=== PATIENT | male | born 1965 | race Caucasian/White ===

== ENCOUNTER 2020-02-11 00:27 | Outpatient (CLI) | payer OTHER, SELFPAY ==
[2020-02-11 18:31] LABS: SARS-CoV-2 RNA PCR Negative
== END 2020-02-11 00:28 | disposition home or self-care (01) ==
LOC: ANHCOVIDDT 00:28
PROVIDERS: PCP Internal Medicine; Visit Provider Internal Medicine Cardiovascular Disease
DX: Z01.812 Encounter for preprocedural laboratory examination (principal); Z11.59 Encounter for screening for other viral diseases
CPT/HCPCS: 87635; C9803; U0003

== ENCOUNTER 2020-02-14 05:26 | Day surgery (SDC) | payer OTHER, SELFPAY ==
[2020-02-14] VITALS (8 sets, daily range): BP systolic 124–142; BP diastolic 75–82; PULSE 60–71; RESP 15–20; TEMP 36.4–36.8; O2SAT 96–98; BMI 40.4
[2020-02-14 07:45] LABS: Basophils Percent Auto 0.5 % (0.2-1.2); Eosinophils Absolute Auto 0.1 K/mm3 (0-0.3); Eosinophils Percent Auto 2.2 % (0-4.4); Hematocrit 50.1 % (42.0-52.0); Hemoglobin 17.1 g/dL (14.0-18.0); Immature Granulocyte Absolute 0.02 K/mm3 (0.00-0.031); Immature Granulocyte Percent A 0.5 % (0-0.5); Lymphocytes Absolute Auto 1.34 K/mm3 (0.9-3.2); Lymphocytes Percent Auto 32.1 % (18.3-44.2); Mean Corpuscular HGB Conc 34.1 g/dl (32-36); Mean Corpuscular Volume 90.8 fl (80-100); Mean Platelet Volume 9.9 fl (7.4-10.4); Monocytes Absolute Auto 0.4 K/mm3 (0.1-0.6); Monocytes Percent Auto 9.1 % (2.6-8.5); Neutrophils Absolute Auto 2.3 K/mm3 (1.3-6.7); Neutrophils Percent Auto 55.6 % (45.5-73.1); Platelet Count Result 113 k/mm3 (150-375); Red Blood Count 5.52 M/mm3 (4.6-6.20); Red Cell Distribution Width 12.5 % (11.5-14.5); White Blood Count 4.2 K/mm3 (4.5-10.0)
[2020-02-14 07:53] LABS: Prothrombin Time 12.9 Seconds (11.1-14.7)
[2020-02-14 08:01] LABS: Blood Urea Nitrogen 27 mg/dL (9-20); Calcium 9.2 mg/dL (8.4-10.2); Carbon Dioxide 28 mmol/L (22-30); Chloride 101 mmol/L (98-107); Estimated CRCL calculation 101 ml/min; Estimated Glomerular Filt Rate > 60; Glucose 174 mg/dL (75-110); Potassium 3.6 mmol/L (3.4-5.0); Sodium 138 mmol/L (137-145)
--- NOTE | 2020-02-14 08:54 | WPDMODSED ---
Moderate Sedation Note-Pt Data Patient Data Allergies Allergy/AdvReac Type Severity Reaction Status Date / Time No Known Allergies Allergy Verified 02/14/20 07:37 Home Medications Medication Instructions Recorded Confirmed Type allopurinol 300 mg PO DAILY 02/14/20 02/14/20 History aspirin 81 mg PO DAILY 02/14/20 02/14/20 History chlorthalidone 25 mg PO DAILY 02/14/20 02/14/20 History empagliflozin [Jardiance] 25 mg PO DAILY 02/14/20 02/14/20 History losartan [Cozaar] 100 mg PO DAILY 02/14/20 02/14/20 History metformin [Glucophage XR] 1,000 mg PO BID 02/14/20 02/14/20 History metoprolol succinate [Toprol XL] 50 mg PO DAILY 02/14/20 02/14/20 History nitroglycerin [Nitrostat] 0.4 mg SUBLINGUAL Q5M PRN 02/14/20 02/14/20 History rosuvastatin [Crestor] 40 mg PO DAILY 02/14/20 02/14/20 History Current Medications: Active Medications Sodium Chloride (Normal Saline Iv) 500 mls @ 100 mls/hr IV CONT .Q5H [facility] Sedation/Anesthesia: No previous sedation/anesthesia problems (including family history). Mod Sed Physical Exam Physical Exam Pre Procedural Exam: Normal: Airway Hours since solid foods: 10 Hours since liquid intake: 10 Internal Medicine - PN: Obj Da Vital Signs Vital Signs: Vital Signs - 24 hr 02/14/20 07:42 Temperature 36.4 C L Pulse Rate 71 Respiratory Rate 15 Blood Pressure 137/80 Pulse Oximetry 98 Meds/Results Medications: Active Medications Generic Name Dose Route Start Last Admin Trade Name Freq PRN Reason Stop Dose Admin Sodium Chloride 500 mls @ 100 mls/hr 02/14/20 06:00 Normal Saline Iv IV CONT .Q5H [facility] Labs CBC & Chem 7: 02/14/20 07:35 02/14/20 07:35 Labs: Laboratory Results - last 24 hr 02/14/20 02/14/20 02/14/20 07:35 07:35 07:35 WBC 4.2 L RBC 5.52 Hgb 17.1 Hct 50.1 MCV 90.8 MCH 31.0 MCHC 34.1 RDW 12.5 Plt Count 113 L MPV 9.9 Immature Gran % (Auto) 0.5 Neut % (Auto) 55.6 Lymph % (Auto) 32.1 Hill % (Auto) 9.1 H Eos % (Auto) 2.2 Baso % (Auto) 0.5 Lymph # (Auto) 1.34 Hill # (Auto) 0.4 Eos # (Auto) 0.1 Baso # (Auto) 0.0 Abs Immat Gran (auto) 0.02 Absolute Neuts (auto) 2.3 Absolute Nucleated RBC 0.0 Nucleated RBC % 0.0 PT 12.9 INR 1.0 Sodium 138 Potassium 3.6 Chloride 101 Carbon Dioxide 28 BUN 27 H Creatinine 0.90 Estim Creat Clear Calc 101 Estimated GFR > 60 Glucose 174 H Calcium 9.2 ASA Classification/Sedation ASA Classification/Sedation Risks: Risks, benefits and alternatives explained and patient/family accepted plan for sedation. Patient re-evaluated immediately prior to sedation.
--- NOTE | 2020-02-14 09:17 | WPDHPUPDATE1 ---
History and Physical Update Update Date/Time: 02/14/20 09:17 History and Physical has been reviewed, including an updated exam of the patient. There are NO changes in the patient's condition. Risks, benefits, and alternatives have been discussed and questions answered. Patient agrees to proceed with procedure.
--- NOTE | 2020-02-14 09:20 | WPDCARDPROC ---
Cardiac Cath Procedure Note Date of procedure:: 02/14/20 Performing physician:: Zeke Engel MD Indication:: Angina, CAD, history of CABG Procedure Procedure performed:: LEFT HEART CATHETERIZATION, CORONARY ANGIOGRAM AND BYPASS GRAFT ANGIOGRAPHY REPORT DATE OF PROCEDURE: 02/14/2020 INDICATION FOR PROCEDURE: chest pain, CAD, history of CABG BRIEF CLINICAL HISTORY:54-year-old male with known CAD, history of CABG x6 on 11/05/2010 at [facility] ( wang to mid LAD, left radial to obtuse marginal branch of LCX, SVG to diagonal branch, SVG to main RCA-PL branch of RCA- distal obtuse marginal branch of LCX); hypertension, diabetes mellitus, obesity. Patient was referred for coronary angiogram and bypass graft angiography in the setting of chest discomfort for about 1 month. He had MPI done on 02/01/2020 which reported exercise time 9.33 minutes, achieving 77% of predicted heart rate before stopping because of fatigue; LVEF 52%; infarction in the basal inferior wall, no ischemia. Benefits and risks of the procedure were discussed with the patient in depth, and informed consent was obtained prior to the procedure. Risks of the procedure include but are not limited to vascular complications including groin hematoma, retroperitoneal bleed, vessel perforation; periprocedural NH, cardiac arrhythmias, stroke, contrast induced nephropathy, and . After discussing all the benefits, risks and alternatives, patient was willing to proceed with the procedure. PROCEDURES PERFORMED: 1. Left heart catheterization- Selective left and right coronary angiogram; left ventriculogram and hemodynamic assessment 2. Selective bypass graft angiography 3. Aortogram 4. Slective left subclavian angiogram 5. Selective right common femoral angiogram and deployment of Angio-Seal hemostatic device 6. Moderate sedation-CPT code 23811 MODERATE SEDATION: Midazolam 3 mg; fentanyl 75 mcg; Start time 0919, Stop time 1005; Total [id number] time 46 minutes; Owen Herrera RN was trained observer for moderate sedation. ACCESS SITE: Right common femoral artery PROCEDURE NOTE: After obtaining informed consent, patient was brought to catheterization lab and prepped and draped in a usual sterile manner. After local anesthesia with lidocaine, right common femoral artery access was taken with micropuncture needle followed by insertion of a 5 Vietnamese sheath. Selective left and right coronary angiogram was performed using 5 Vietnamese JL4 and JR4 catheters respectively. Orthogonal views were taken. Next, a 5 JR diagnostic catheter was advanced in the LV cavity and was flushed with normal saline. LV pressure measurement was performed. After this, left ventriculogram was performed. The catheter was flushed again, and gradient across the aortic valve was measured on the pullback of the catheter. The same day are catheter was used for selective angiogram of SVG to diagonal, and SVG to RCA. The catheter was withdrawn and was pointed towards the left subclavian artery. Selective left subclavian angiogram was performed. The catheter was exchanged with a 5 Vietnamese IM catheter over a long exchange wire, and selective WANG angiogram was performed. A 5 Vietnamese multipurpose A1 catheter was advanced in aorta and selective SVG to RCA angiogram was again performed for better visualization of the graft and the distal vessels. The SVG to OM could not be visualized despite multiple attempts. Aortogram was performed using the Multipurpose A1 catheter. Finally, selective right common femoral angiogram was performed followed by successful deployment of Angio-Seal vascular closure device. Patient tolerated procedure well without any immediate procedure related complications. FINDINGS: [employer] [place] [employer] [place] CORONARY ARTERIES: LEFT MAIN CORONARY: The left main coronary artery is a medium caliber vessel with diffuse about 50-60% stenosis in the distal segment. LEFT ANTERIOR DESCENDING ARTERY: The LAD has s
--- NOTE | 2020-02-14 13:36 | SUR.PHASEII ---
Patient up to chair prior to discharge. Patient's groin soft, no drainage noted to dressing. R pedal pulse palpable. Educated patient and on discharge instructions and follow up care. All questions answered. PIV removed and intact. Escorted to vehicle via wheelchair. No distress noted at time of discharge.
== END 2020-02-14 13:39 | disposition home or self-care (01) ==
PROVIDERS: PCP Internal Medicine; Visit Provider Internal Medicine Cardiovascular Disease
PROC: 4A023N7 Measurement of Cardiac Sampling and Pressure, Left Heart, Percutaneous Approach (ICD-10-PCS; CPT 93459; principal; 2020-02-14 08:30)
DX: I25.119 Atherosclerotic heart disease of native coronary artery with unspecified angina pectoris (principal); R07.9 Chest pain, unspecified; Z95.1 Presence of aortocoronary bypass graft; I10 Essential (primary) hypertension; Z79.82 Long term (current) use of aspirin; Z79.84 Long term (current) use of oral hypoglycemic drugs
CPT/HCPCS: 36415; 80048; 85025; 85610; 93459; C1760; C1769; C1887; C1894; G0269; J1644; J2250; J3010; J7040